=== PATIENT | female | born 1945 ===

== ENCOUNTER 2018-08-23 11:12 | Emergency (ER) | payer OTHER ==
[~2018-08-23] VITALS: Ht 157.5 cm; Wt 42.2 kg
[2018-08-23] MEDS ORDERED: LANTUS SOL100 UNIT/1 (11:26)
[2018-08-23] MEDS ORDERED: ENALAPRIL MALEA10 MG (11:26)
[2018-08-23] MEDS ORDERED: HUMALOG100 UNIT/1 (11:26)
[2018-08-23] MEDS ORDERED: LEVOFLOXACIN500 MG (11:26)
[2018-08-23] MEDS ORDERED: SIMVASTATIN20 MG (11:26)
== END 2018-08-23 22:38 | disposition home or self-care (01) ==
LOC: ER 11:12
DX: K29.60 Other gastritis without bleeding (principal); N39.0 Urinary tract infection, site not specified; B96.89 Other specified bacterial agents as the cause of diseases classified elsewhere; R63.6 Underweight

== ENCOUNTER 2018-08-27 15:25 | Inpatient (IN) | payer OTHER ==
[~2018-08-27] VITALS: Ht 157.5 cm; Wt 40.8 kg
[~2018-08-27 15:25] MED LIST: ENALAPRIL MALEA10 MG; HUMALOG100 UNIT/1; LANTUS SOL100 UNIT/1; LEVOFLOXACIN500 MG; SIMVASTATIN20 MG
--- NOTE | 2018-08-27 15:45 | NUR ---
SE RECIBE PTE EL CUAL FAMILIAR REFIERE QUE PRESENTA VARIOS EPISODIOS DE VOMITOS DESDE EL LUNES PRESENTANDO EN EL DELIA DE HOY MAS DE 4. PTE INDICA QUE INGIERE COMIDA Y LA MISMA LA VOMITA NO TOLERA NINGUN ALIMENTO.
--- NOTE | 2018-08-27 18:09 | NUR ---
EVALUA PACIENTE Y ORDENA TRATAMIENTO MEDICO DEL CUAL SE ORIENTA PACIENTE Y FAMILIAR,AMBOS REFIEREN COMPRENDER. SE COLECTAN MUESTRAS DE LABORATORIOS LAS CUALES SON ROTULADAS Y ENVIADAS PARA ANALISIS. SE ADMINISTRAN MEDICAMENTOS BAJO MEDIDAS ASEPTICAS.PACIENTE NO PRESENTA REACCION ADVERSA A MEDICAMENTO ADMINISTRADO. SE NOTIFICA ESTUDIO DE RX A PERSONAL DE TURNO.
--- NOTE | 2018-08-28 00:04 | NUR ---
SE ORIENTA AL PACIENTE SOBRE EL TX. SE MARYELLEN UA Y UC CATETERIZADA BAJO MEDIDAS ESTERILES. SE COLECTA MUESTRAS Y SON ENVIADAS AL LABORATORIO.
--- NOTE | 2018-08-28 07:47 | NUR ---
SE RECIBE PTE FEMENINA DE 72 YRS ALERTA CONCIENTE Y TRANQUILA EN VINAY CON BARABDAS ELEVADA. SE MANTIENE EN ESPERA DE MEDICO CONSULTOR. SE OBSERVA POR CAMBIOS EN GARCÍA CONDICION.
== END 2018-09-12 20:51 | disposition home or self-care (01) | DRG 391 ==
LOC: ER 15:25 → SEC-K 08-28 10:52 → MEDI 08-28 10:52 → MEDJ 09-08 14:23
PROVIDERS: ADMIT Internal Medicine
PROC: 8E0ZXY6 Isolation (ICD-10-PCS; 2018-08-30)
PROC: 0T9B70Z Drainage of Bladder with Drainage Device, Via Natural or Artificial Opening (ICD-10-PCS; 2018-08-30)
PROC: BW21Y0Z Computerized Tomography (CT Scan) of Abdomen and Pelvis using Other Contrast, Unenhanced and Enhanced (ICD-10-PCS; principal; 2018-09-01)
PROC: B020ZZZ Computerized Tomography (CT Scan) of Brain (ICD-10-PCS; 2018-09-03)
PROC: 0DCP7ZZ Extirpation of Matter from Rectum, Via Natural or Artificial Opening (ICD-10-PCS; 2018-09-03)
PROC: 0DH67UZ Insertion of Feeding Device into Stomach, Via Natural or Artificial Opening (ICD-10-PCS; 2018-09-06)
PROC: 3E0G76Z Introduction of Nutritional Substance into Upper GI, Via Natural or Artificial Opening (ICD-10-PCS; 2018-09-06)
PROC: 0DH63UZ Insertion of Feeding Device into Stomach, Percutaneous Approach (ICD-10-PCS; 2018-09-10)
PROC: 3E0G76Z Introduction of Nutritional Substance into Upper GI, Via Natural or Artificial Opening (ICD-10-PCS; 2018-09-10)
DX: K29.00 Acute gastritis without bleeding (principal); E43 Unspecified severe protein-calorie malnutrition; N39.0 Urinary tract infection, site not specified; J98.11 Atelectasis; Q61.01 Congenital single renal cyst; K56.41 Fecal impaction; E11.9 Type 2 diabetes mellitus without complications; Z79.4 Long term (current) use of insulin; K52.89 Other specified noninfective gastroenteritis and colitis; E86.9 Volume depletion, unspecified; E87.8 Other disorders of electrolyte and fluid balance, not elsewhere classified; B96.1 Klebsiella pneumoniae [K. pneumoniae] as the cause of diseases classified elsewhere; Z16.12 Extended spectrum beta lactamase (ESBL) resistance; G30.9 Alzheimer's disease, unspecified; N39.8 Other specified disorders of urinary system; T18.5XXA Foreign body in anus and rectum, initial encounter